=== PATIENT | male | born 1950 ===

== ENCOUNTER 2021-11-21 01:13 | Outpatient (CLI) | payer MEDICARE, SELFPAY ==
--- NOTE | 2021-11-21 | DI.NM_ITS ---
APPROVED REPORT Exam: Exercise Treadmill Patient Location: Out-Patient Room/Bed: Stress Nurse: Marilee Wu RN Ordering Provider:KISHORE GARDNER MD Contact Number: BMI: 22.14 Baseline Rhythm: Sinus Rhythm Comment: Prolonged QT interval Medical History Medical History: Hypertension, hyperlipidemia, diabetes, COPD, CVD, myocardial infarction, smoker (fo rmer), anxiety, PTSD, alcohol dependence, PRINCESS, hx AFib, seizures Cardiac Medications: Amlodipine, clopidogrel, ezetimibe, losartan, metoprolol tartrate, nitroglycerin , rosuvastatin, acamprosate, farxiga Allergies: Metformin, lisinopril, simvastatin, tagamet Cardiac Risk Factors: Hypertension, hyperlipidemia, diabetes, COPD, CVD, family hx, smoker (former) Previous Cardiac Procedures: PCI (07/18), CABG-3V (07/18), RENA (07/18) Pretest Chest Pain Characteristics: None Exercise History: Physically active Physical Disabilities: None Lung Sounds: Clear to auscultation Heart Sounds: Regular Stress Test Details Test: Exercise stress testing was performed using a Constantino protocol. Nuclear Acquisition: Rest Tc-99m/Stress Tc-99m 1 day Rest Isotope: Tc-99m Sestamibi. Dose: 9.6 Date: 11/21/2021 Injection Time: 0915 Stress Isotope: Tc-99m Sestamibi. Dose: 31.0 Date: 11/21/2021 Injection Time: 1040 HR Resting HR Supine: 62 bpm Max Heart Rate (APMHR): 151.924352 bpm Resting HR Standin bpm Target HR (85% APMHR): 128.115103 bpm Max HR Achieved: 164 bpm % of APMHR: 108.61 Recovery HR: 80 bpm HR response to stress: Normal HR response to stress Comment: Metoprolol tartrate held for 24 hrs BP Resting BP Supine: 148/74 mmHg Resting BP Standin/80 mmHg Max BP: 180/88 mmHg Recovery BP: 152/74 mmHg BP response to stress: Normal blood pressure response to stress. ECG Resting ECG: Sinus Rhythm, prolonged QT interval Ectopy: None Comment: Flipped T waves leads III, V2-V6 when pt standing. Stress ECG: Sinus Tachycardia ST Change: No significant ST segment changes noted Arrhythmia: Rare PACs Recovery ECG: Sinus Rhythm, prolonged QT interval Recovery ST Change: Flipped T waves leads III, V2-V6 upright when pt supine. Recovery Arrhythmia: None Clinical Reason for Termination: Fatigue Stress Symptoms: General Fatigue, lightheaded Exercise duration: 7 min27 sec Highest Stage Reached: Stage 3: 3.4 mph at 14% grade. Exercise capacity: 9.29 METs Ross Treadmill Score: 6.1 Rate Pressure Product: [id number] Stress ECG Conclusion 1. Resting electrocardiogram showed diffuse nondiagnostic ST-T abnormalities 2. Patient exercised on the Constantino protocol and completed a workload of 9.29 METS 3. Normal heart rate and blood pressure response to exercise. Patient achieved greater than 100% of predicted heart rate for age 4. Electrocardiographically the test was negative for myocardial ischemia 5. There were no significant dysrhythmias Ross Treadmill Score is 6.1 which is Low risk. Stress Test Summary STAGE Time (mins) Speed (mph) Grade (%) HR BP SYMPTOMS METS Supine 62 148/74 Standing 69 144/80 SpO2 97% 1 3 1.7 10 90 146/82 SpO2 96% 4.6 2 6 2.5 12 105 144/78 SpO2 96% 7 3 9 3.4 14 136 Mild lightheadedness 10.2 1 min recovery 121 164/90 Symptoms resolved, SpO2 98% 3 min recovery 94 180/88 SpO2 98% 6 min recovery 80 152/74 SpO2 98% Pt reported mild lightheadedness at cessation of exercise. Resolved quickly when pt was supine during recovery. MPI Conclusion Normal myocardial perfusion without evidence of ischemia or prior infarction EF 44% Radiologist Interpretation Radiologist Interpretation by: Claudio Pagan MD Interpretation Date/Time: 11/22/2021 16:27:41
== END 2021-11-21 01:33 ==
LOC: DI 01:14
PROVIDERS: Visit Provider Internal Medicine Interventional Cardiology
DX: I25.10 Atherosclerotic heart disease of native coronary artery without angina pectoris (principal); I10 Essential (primary) hypertension; E78.5 Hyperlipidemia, unspecified; E11.9 Type 2 diabetes mellitus without complications; J44.9 Chronic obstructive pulmonary disease, unspecified; Z82.49 Family history of ischemic heart disease and other diseases of the circulatory system; Z87.891 Personal history of nicotine dependence; R94.31 Abnormal electrocardiogram [ECG] [EKG]
CPT/HCPCS: 78452; 93016; 93018; 93017